=== PATIENT | male | born 1965 | race Caucasian/White ===

== ENCOUNTER 2021-03-24 17:21 | Inpatient (IN) | payer BC, SELFPAY ==
[~2021-03-24] VITALS: Ht 177.8 cm; Wt 95.3 kg
[2021-03-24 17:25] VITALS: BP 158/82
[2021-03-24] MEDS ORDERED: LORazepam 2 MG/ML VIAL ONE ×2 (17:28→17:31)
[2021-03-24] MEDS ORDERED: NALOXONE PFS 2 MG/2 ML SYR IVP ONE (17:35)
[2021-03-24] MEDS ORDERED: levETIRAcetam 1,000 MG in NACL 0.9% 100 ML IV ONE (17:35)
[2021-03-24] MEDS ORDERED: PROPOFOL 1000 MG/100 ML PREMIX 100 ML IV ONE ×2 (17:35→22:28)
[2021-03-24] MEDS ORDERED: MIDAZOLAM MDV 50 MG in NACL 0.9% 40 ML IV PRN (17:35)
--- NOTE | 2021-03-24 17:35 | NUR ---
PT BROUGHT IN BY [facility], DRAW SHEETED TO BED 3 AND PLACED ON DRAFTER (CAD) ELECTRICAL.
--- NOTE | 2021-03-24 17:35 | NUR ---
(2085) DX: ALOC SEIZURES SOFT METALS HAND ENGRAVER CALLED TO BEDSIDE GAYR VAN AND GARY SCHWARZ ATTENDING
--- NOTE | 2021-03-24 17:38 | NUR ---
PT PLACED ON VENT AC 16, VT 500, PEEP 5 AND FIO2 100%. ETT SECURED @24 TEETH/GUM. VENT ALARMS SET AND FUNCTIONING. ADEQUATE VT BEING DELIVERED. PEAK PRESSURES/RR WITHIN NORMAL RANGE. WILL CONTINUE TO MONITOR.
--- NOTE | 2021-03-24 17:39 | NUR ---
# 16 FR Mc catheter with 10 ml utilizing sterile technique. Immediate return of 40mL straw urine noted. Bedside drainage bag placed below level of bladder. Urine sample collected and sent to lab. Pt tolerated procedure well.
--- NOTE | 2021-03-24 17:40 | NUR ---
# 16 FR OG tube placed to MOUTH. Placement checked by auscultation of instilled air into stomach and aspiration of gastric contents. Tubing taped in place to prevent dislodging. Patient tolerated WELL.
--- NOTE | 2021-03-24 17:40 | NUR ---
Note sean in ED - 03/24/21 at 1958 by CAM 16 FR OG TUBE INSERTED. PLACEMENT CONFIRMED BY AUSCUTATION. RAD CONTACTED FOR PLACEMENT CONFIRMATION.
--- NOTE | 2021-03-24 17:40 | NUR ---
56 y/o M TWIN from home for ALOC and desaturation. Per EMS, patient presented with seizures, ALOC and agitation. EMS states patient desaturated down to ~50% during transport. Family states at 1647, 911 was contacted after patient was resting on a couch s/p chemotherapy when he stated that "I do not feel well." Family states patient fell down to his knees and asked for help. Family assisted patient from couch onto ground and denies LOC. Family noted patient with R sided facial drool and a bit tongue. Last seen normal: 1630. Last seizure 4 months ago (new onset). Patient presented to ER by BVM, HR 145, SpO2 95% by BVM. RT, ERMD, EMT and staff RNs at bedside. PMH: lung cancer (metastasized to brain and bones), HTN, seizures Meds: Decadron, lasix, amlodipine, Keppra
--- NOTE | 2021-03-24 17:43 | NUR ---
ENDOTRACHEAL TUBE CONFIRMATION VIA CHEST XRAY BY DR. SARAH FRANKLIN "GOOD POSITION"
--- NOTE | 2021-03-24 17:49 | NUR ---
(1730) USING A GLIDESCOPE PATIENT SUCCESSFULLY INTUBATED BY DR. SARAH YOUNG WITH AN ENDOTRACHEAL TUBE #7.5 SECURED AT 24cM TEETH/GUM LINE CONFIRMATION BY CO2 DETECTOR (YELLOW) GOOD CHEST RISE AUSCULTATION BILATERAL APEX TO MID + ABDOMINAL BY HECTOR CHEST XRAY TO FOLLOW
--- NOTE | 2021-03-24 17:50 | NUR ---
LAB AT BEDSIDE, HANDED UA AND BLOOD SAMPLE/CULTURES TO CPT KI
--- NOTE | 2021-03-24 18:00 | NUR ---
TRANSFERRED ON VENTILATOR TO RADIOLOGY FOR CT SCAN OF HEAD OXYGEN CONNECTED TO E-TANK TOLERATED PROCEDURE AND TRANSPORT WELL WITHOUT ADVERSE REACTIONS NOTED SATURATION 99%-100%
--- NOTE | 2021-03-24 18:02 | NUR ---
PATIENT TRASNPORTED VIA ZannelNEY ON EMERGENCY OPERATOR FOR CT SCANS, ACCOMPANIED BY ASHLEY-RN, MIKHAIL-RT, AND LUCÍA- STATEMENT REQUEST CLERK.
[2021-03-24 18:05] LABS: APPEARANCE,URINE CLEAR (CLEAR); BILIRUBIN,URINE NEGATIVE (NEGATIVE); BLOOD, URINE 2+ (NEGATIVE); COLOR,URINE YELLOW (YELLOW); LEUKOCYTE ESTERASE ,URINE NEGATIVE (NEGATIVE); NITRITE, URINE NEGATIVE (NEGATIVE); PH,URINE 5.5 (5.0-9.0); UGLUCOSE NEGATIVE (NEGATIVE)
[2021-03-24 18:05] LABS: BASOPHILS # (AUTO) 0.1 K/uL (0.00-0.22); BASOPHILS % (AUTO) 0.4 % (0.0-2.0); EOSINOPHILS % (AUTO) 0.2 % (0.0-4.0); HEMATOCRIT 37.3 % (36-52); HEMOGLOBIN 11.8 g/dL (12.0-18.0); LYMPHOCYTES # (AUTO) 3.8 K/uL (2.0-11.5); LYMPHOCYTES % (AUTO) 17.4 % (20.5-51.1); MEAN CORPUSCULAR HEMOGLOBIN 31 pg (27-31); MEAN CORPUSCULAR HGB CONC 32 g/dL (33-37); MEAN CORPUSCULAR VOLUME 98.3 fL (80-94); MONOCYTES # (AUTO) 0.9 K/uL (0.8-1.0); NEUTROPHILS # (AUTO) 16.9 K/uL (1.8-7.7); PLATELET COUNT (AUTO) 200 K/uL (140-450); WHITE BLOOD COUNT (AUTO) 21.7 K/uL (4.8-10.8)
[2021-03-24 18:11] LABS: COARSE GRANULAR CASTS,URINE 0-10 /LPF (None Seen); RBC,URINE 11-20 (MOD) /HPF (0-5); WBC,URINE 0-5 /HPF (0-5)
--- NOTE | 2021-03-24 18:15 | NUR ---
Brando estrada in [facility] - 03/24/21 at 2006 by CAM SEE CODE SHEET FOR DETAILS
[2021-03-24 18:16] LABS: BARBITURATE, URINE NEGATIVE ng/ml (NEG <=200); BENZODIAZEPINE, URINE NEGATIVE ng/mL (NEG <=200); CANNABINOID, URINE NEGATIVE ng/mL (NEG <=50); COCAINE, URINE NEGATIVE ng/mL (NEG <=300); OPIATE, URINE NEGATIVE ng/mL (NEG <=2000); PHENCYCLIDINE SCREEN,URINE NEGATIVE ng/mL (NEG <=25)
[2021-03-24] MEDS ORDERED: NACL 0.9% 1,000 ML IV ONE ×2 (18:25→19:40)
[2021-03-24] MEDS ORDERED: DEXAMETHASONE 10 MG/ML VIAL IVP ONE (18:25)
[2021-03-24 18:29] LABS: ACETAMINOPHEN < 0.5 ug/ml (10-30); ALBUMIN 2.2 g/dL (3.4-5.0); ANION GAP 19.8 (8-16); ASPARTATE AMINOTRANSFERASE 46 U/L (15-37); CARBON DIOXIDE 18.4 mmol/L (21-32); CHLORIDE 104 mmol/L (98-107); CREATININE 1.4 mg/dL (0.6-1.3); GFR ARICAN-AMERICAN 67 mL/min (>90); GLUCOSE 182 mg/dL (74-106); POTASSIUM 4.2 mmol/L (3.5-5.1); SALICYLATE < 2.8 mg/dL (2.8-20.0); SODIUM SERUM 138 mmol/L (136-145); THYROID STIMULATING HORMONE 10.22 uIU/mL (0.34-3.74); TOTAL BILIRUBIN 0.3 mg/dL (0.0-1.0); UREA NITROGEN, BLOOD 13 mg/dL (7-18)
--- NOTE | 2021-03-24 18:32 | NUR ---
CENTRAL SET UP AT BED SIDE ERMD NOTIFIED
--- NOTE | 2021-03-24 19:20 | NUR ---
Report and transfer of care endorsed to SANDOR Cortes.
[2021-03-24] MEDS ORDERED: VANCOMYCIN 1,000 MG in DEXTROSE 5% 250 ML IV ONE (19:30)
[2021-03-24] MEDS ORDERED: PIPERACILLIN/TAZOBACTAM 4.5 GM in DEXTROSE 5% 100 ML IV ONE (19:30)
--- NOTE | 2021-03-24 19:30 | NUR ---
VINCENT SZYMANSKI JR (SON) [phone] REQUESTED CONTACT FOR FURTHER UPDATES/ROOM PLACEMENT
--- NOTE | 2021-03-24 19:30 | NUR ---
SEE IV SPREAD SHEET FOR VS.
[2021-03-24] MEDS ORDERED: LACTULOSE 20 GM/30 ML UDC PO ONE (19:35)
[2021-03-24] MEDS ORDERED: levETIRAcetam 100 MG/ML VIAL IV ONE (19:35)
[2021-03-24] MEDS ORDERED: NALOXONE 0.4 MG/ML VIAL IVP ONE (19:40)
--- NOTE | 2021-03-24 19:45 | NUR ---
XRAY AT BEDSIDE.
[2021-03-24] MEDS ORDERED: LORazepam 2 MG/ML VIAL IVP ONE (20:00)
[2021-03-24] MEDS ORDERED: ETOMIDATE 20 MG/10 ML VIAL IVP ONE (20:00)
[2021-03-24] MEDS ORDERED: ROCURONIUM 50 MG/5 ML VIAL IV ONE (20:00)
[2021-03-24] MEDS ORDERED: LABETALOL 100 MG/20 ML VIAL IVP ONE (20:05)
[2021-03-24] MEDS ORDERED: PIPERACILLIN/TAZOBACTAM 4.5 GM VIAL IV ONE (20:09)
--- NOTE | 2021-03-24 20:15 | NUR ---
Patient appears to be resting comfortably in bed. Vital Signs within normal limits. Respirations even and unlabored.
--- NOTE | 2021-03-24 20:26 | NUR ---
PT TAKEN TO CT
--- NOTE | 2021-03-24 21:02 | NUR ---
PT BROUGHT BACK FROM CT
--- NOTE | 2021-03-24 21:11 | NUR ---
PT RECIEVED IN ED ON VENT AC/VC 500 +5 f16 100% W/ 7.5 ETT SECURED @ 24CM AND WAS TRANSPORTED TO CT AND BACK TO ED W/ NO ADVERSE EVENTS VENT IS PLUGGED INTO RED OUTLET W/ ALARMS ON AND AUDIBLE AMBU IS AT BEDSIDE WILL CONTINUE TO MONITOR
--- NOTE | 2021-03-24 21:30 | NUR ---
Patient appears to be resting comfortably in bed. Patient remains on manager cardiac cath, vital signs improving. Respirations even and unlabored. Patient FC emptied 1300ml. Patient bed is locked and in lowest postion. at bedside.
[2021-03-24] MEDS ORDERED: DOCUSATE SODIUM 100 MG GELCAP PO PRN (21:50)
[2021-03-24] MEDS ORDERED: ONDANSETRON 4 MG/2 ML VIAL IM/IVP PRN (21:50)
[2021-03-24] MEDS ORDERED: HYDROcodone/APAP 5/325 MG 1 TAB TAB PO PRN (21:50)
[2021-03-24] MEDS ORDERED: MORPHINE SULFATE 2 MG/ML SYR IVP PRN (21:50)
[2021-03-24] MEDS ORDERED: SODIUM PHOS / POTASSIUM PHOS 1 PKT PDR PO PRN (21:50)
[2021-03-24] MEDS ORDERED: POTASSIUM CHLORIDE 40 MEQ, LIDOCAINE MPF 1% 25 MG in NACL 0.9% 250 ML IV PRN (21:50)
[2021-03-24] MEDS ORDERED: MAG SULF 2000 MG/WATER PREMIX 50 ML IV PRN (21:50)
[2021-03-24 22:25] LABS: PHOSPHORUS 5.9 mg/dL (2.5-4.9)
[2021-03-24] MEDS: NACL 0.9% 1,000 ML IV SCH (22:50)
--- NOTE | 2021-03-24 23:03 | NUR ---
Patient appears to be resting comfortably in bed.Patient remains on quality assurance monitor chassis, vitals continue to imporve. See IV spread sheet for vitals. Patient remains on vent to trach, respirations even and unlabored. Patient bed is locked and in lowest positon.
[2021-03-24] MEDS ORDERED: VANCOMYCIN 1,000 MG VIAL ONE (23:26)
[2021-03-25] VITALS (22 sets, daily range): BP systolic 90–127; BP diastolic 49–76
[2021-03-25] MEDS ORDERED: PROPOFOL 1000 MG/100 ML PREMIX 100 ML IV ONE ×4 (01:08→10:32)
--- NOTE | 2021-03-25 01:13 | NUR ---
Patient appears to be resting comfortably in bed. Patient remains on residential solar consultant, Vital Signs within normal limits. Respirations even and unlabored, patient remains on mechanical ventilator. remians at bedside. Iv site in r hand remains patient. Skin is clean and dry, patient repositioned for comfort measures.
--- NOTE | 2021-03-25 02:26 | NUR ---
Patient remains on patient monitor with VSS. at bedside. Iv site in r hand remains patient. Patient repositioned for comfort measures. No BM noted, FC emptied of 500 ml or yellow urine.
--- NOTE | 2021-03-25 02:45 | NUR ---
FIO2 TITRATED TO 70% AND PT TOLERATING WELL 100% 5 MIN POST TITRATION WILL CONTINUE TO MONITOR AND TITRATE TOLERATED
--- NOTE | 2021-03-25 04:22 | NUR ---
Patient appears to be resting comfortably in bed. Patient remains on cardiac monitorand VS WNL. Respirations even and unlabored while on vent.
--- NOTE | 2021-03-25 04:33 | NUR ---
FIO2 TITRATED TO 50% AND TOLERATING WELL WILL CONTINUE TO MONITOR AND TITRATE TOLERATED
--- NOTE | 2021-03-25 05:02 | NUR ---
RT SUCTIONED AT BEDSIDE, PATIENT TOELRATED WELL. PATIENT REPOSITIONED FOR COMFORT MEASURES.
[2021-03-25] MEDS: PIPERACILLIN/TAZOBACTAM 2.25 GM in DEXTROSE 5% 50 ML IV SCH ×4 (06:00→23:23)
--- NOTE | 2021-03-25 06:10 | NUR ---
Patient will be admitted to care of . Admited to ICU. Will go to room BED 1. Belongings list completed. Report to KEN PATTEN.
[2021-03-25 06:20] LABS: HEMATOCRIT 35.2 % (36-52); HEMOGLOBIN 11.9 g/dL (12.0-18.0); MEAN CORPUSCULAR HEMOGLOBIN 32 pg (27-31); MEAN CORPUSCULAR HGB CONC 34 g/dL (33-37); MEAN CORPUSCULAR VOLUME 95.5 fL (80-94); PLATELET COUNT (AUTO) 200 K/uL (140-450); RED BLOOD CELL COUNT(AUTO) 3.69 MIL/uL (4.20-6.10); RED CELL DISTRIBUTION WIDTH 19.1 % (11.6-13.7); WHITE BLOOD COUNT (AUTO) 12.5 K/uL (4.8-10.8)
--- NOTE | 2021-03-25 06:30 | NUR ---
RECEIVED REPORT FROM ER NURSE.
--- NOTE | 2021-03-25 06:45 | NUR ---
PT TRANSFERRED TO BED 1 HE WAS RESTARTED ON PROPOFOL AT 60MCG WELL NORMAL SALINE RUNNING AT 40MLS/HR BOTH RUNNING OFF LEFT CENTRAL LINE. PT ALSO HAS BERMUDEZ CATHETER INSERTED HE IS INTUBATED AND VENT SETTINGS ORDERED VT 500 FIO2 AT 55% R 18. PT EYES CLOSED AND NOT ORIENTED TO PERSON, TIME OR PLACE. V/S FOLLOWS: T 97.7 P 79 R 16 B/P 107/67 02 99% ON ALL VENT SETTINGS. ALL ORDERED PRECAUTIONS IN PLACE.
[2021-03-25 06:52] LABS: ANION GAP 15.8 (8-16); CARBON DIOXIDE 21.5 mmol/L (21-32); CREATININE 1.4 mg/dL (0.6-1.3); POTASSIUM 4.3 mmol/L (3.5-5.1)
--- NOTE | 2021-03-25 06:53 | NUR ---
HANG NEW BAG OF PROPOFOL 1000MG VIA PERIPHERAL LINE
--- NOTE | 2021-03-25 07:15 | NUR ---
RECEIVED BEDSIDE REPORT FROM NIGHTSHIFT NURSE. PT ETT TO VENT FIO1 55%, VT 500, R 16, PEEP 5. RESPIRATIONS EVEN AND UNLABORED WITH NO SOB OR RESPIRATORY DISTRESS. SKIN WARM AND DRY TO TOUCH. ON BARE HUGGER. PT WITH BERMUDEZ DRAINING VIA GRAVITY. PT WITH OGT. PT HAS LIJ TRIPLE LUMEN CENTRAL LINE INFUSING NS AT 40 AND PROP AT 60MCG/MIN. SAFETY MEASURES IN PLACE. WILL CONTINUE TO MONITOR
--- NOTE | 2021-03-25 07:45 | NUR ---
RCV'D PATIENT INTUBATED WITH 7.5 ETT AT 24 CM AT TEETH. TUBE IS IN PLACE AND SECURED WITH ANCHOR-FAST. NO SOB OR DISTRESS NOTES. VENT CONNECTED TO RED OUTLET. ALARMS AUDIBLE. AMBU BAG AT BEDSIDE. WILL CONTINUE TO MONITOR PATIENT.
--- NOTE | 2021-03-25 08:17 | NUR ---
PATIENT HAS BEEN SCREENED AND CATEGORIZED HIGH NUTRITION RISK. PATIENT WILL BE SEEN WITHIN 1-2 DAYS OF ADMISSION. 03/25/21-03/26/21 RECEIVED FNS CONSULT FOR TUBE FEEDING QUINTEN GALINDO RD
[2021-03-25 08:27] LABS: LYMPHOCYTES % (MANUAL) 9 % (20-46); MONOCYTES % (MANUAL) 2 % (5-12)
[2021-03-25] MEDS ORDERED: levETIRAcetam 500 MG in NACL 0.9% 100 ML IV SCH (09:00)
--- NOTE | 2021-03-25 09:00 | NUR ---
AT BEDSIDE UPDATE GIVEN
[2021-03-25] MEDS: PANTOPRAZOLE 40 MG INJ VIAL IVP SCH (09:43)
--- NOTE | 2021-03-25 09:58 | NUR ---
ADMINISTERED SCHED MED PRESCRIBED PER MD ORDER. PT TOLERATED FAIRLY. SAFETY MEASURES IN PLACE. WILL CONTINUE TO MONITOR
--- NOTE | 2021-03-25 10:15 | NUR ---
DR. VANG ASESSING PATIENT AND AT BEDSIDE SPEAKING WITH PATIENTS SON VINCENT.
[2021-03-25] MEDS: PROPOFOL 1000 MG/100 ML PREMIX 100 ML IV PRN ×4 (10:45→23:28)
[2021-03-25] MEDS: NACL 0.9% 1,000 ML IV SCH ×3 (11:15→20:41)
--- NOTE | 2021-03-25 11:15 | NUR ---
DR. DUBOSE AT BEDSIDE ASSESSING PATIENT AND SPEAKING WITH
--- NOTE | 2021-03-25 11:50 | NUR ---
DECREASED FIO2 TO 30% RN NOTIFIED WILL CONTINUE TO MONITOR PATIENT.
--- NOTE | 2021-03-25 12:15 | NUR ---
AT BEDSIDE VISITING PATIENT. SAFETY MEASURES IN PLACE. WILL CONTINUE TO MONITOR
[2021-03-25] MEDS ORDERED: AMLO5TAB PO (12:17)
[2021-03-25] MEDS ORDERED: DEC4 PO (12:17)
[2021-03-25] MEDS ORDERED: FURO-572 PO (12:17)
[2021-03-25] MEDS ORDERED: LORazepam 2 MG/ML VIAL IM/IVP PRN (12:40)
[2021-03-25] MEDS: LACTULOSE 20 GM/30 ML UDC PO SCH (13:09)
--- NOTE | 2021-03-25 13:57 | NUR ---
03/25/21 RD INITIAL ASSESSMENT COMPLETED PLEASE REFER TO NUTRITION ASSESSMENT UNDER CARE ACTIVITY FOR ESTIMATED NUTRITIONAL NEEDS. 1. CONTINUE JEVITY 1.2 @ 55 ML/HR -THIS WILL PROVIDE 1584 KCAL/DAY AND 73 GM OF PROTEIN/DAY 2. CONTINUE FREE WATER FLUSH OF 150 ML Q6H 3. IF/WHEN PT IS EXTUBATED, CONSIDER ORDERING A SWALLOW EVALUATION TO ADVANCE TO PO INTAKE 4. RD TO FOLLOW-UP 2-3 DAYS, HIGH RISK QUINTEN GALINDO, RD
--- NOTE | 2021-03-25 14:05 | NUR ---
PROVIDED ORAL CARE TO PATIENT. SAFETY MEASURES IN PLACE. WILL CONTINUE TO MONITOR
--- NOTE | 2021-03-25 14:06 | NUR ---
PROVIDED ORAL CARE TO PATIENT. PT TOLERATED WELL. SAFETY MEASURES IN PLACE. WILL CONTINUE TO MONITOR
--- NOTE | 2021-03-25 15:04 | NUR ---
DR. BARRIGA ASSESSING PATIENT
--- NOTE | 2021-03-25 15:07 | NUR ---
DC PLANNIN YRS OLD MALE PATIENT WAS ADMITTED FROM HOME WITH A DX OF LUNG CA, RESP FAILURE AND SEIZURE. PATIENT HAS A HX OF HTN, SEIZURE AND LUNG CA METS TO THE BRAIN. PT RECEIVED CHEMOTHERAPY 03/24/21 . CXR SHOWED HAZY BILATERAL PULMONARY INFILTRATE. RAPID COVID TEST NEGATIVE. INTUBATED SEDATED FIO2 40% ADMINISTERED IVF, IV ABX ZOSYN AND KEPPRA IV. CONSULTED WITH PULMO LOPEZO, AND NEUROLOGIST. DC PLAN PER PATIENT RESPONSE TO THE TREATMENT. Addendum: 03/26/21 at 1150 by Falguni Yusuf RN DC PLANNING: RECEIVED A CALL FROM BS/BREANNA MCKEE NAME TERRANCE [phone] STATED SHE RECEIVED A CALL FROM PT'S NAME SIVA WHO CONCERNED ABOUT HOSPITAL THAT IS NOT CONTRACTED AND WORRIED ABOUT THE BILL. CALLED TERRANCE RYLEE DISCUSSED THE ISSUES AND CONCERN PER TERRANCE SINCE THIS IS EMERGENCY CASE SHE SHOULDN'T BE WORRIED BUT IF PATIENT IS STABLE TO TRANSFER [facility] IS CONTRACTED. I MET SIVA AT THE BED SIDE DISCUSSED THE CONCERN AND ISSUES ANSWERED ALL QUESTION AND SHE MENTIONED THAT DR ZAMARRIPA IS THE ONCOLOGIST AND TO CONSULT HIM. WILL NOTIFY ATTENDING. I EXPLAINED THE PROTOCOL AND ONCE PT IS STABLE FOR TRANSFER WILL FAX IT TO [facility] RYLEE TO FOLLOW Addendum: 03/30/21 at 1220 by Falguni Yusuf RN DC PLANNING: PATIENT IS SATING 98% ON ROOM AIR , NOT QUALIFIED FOR HOME O2. PRIMARY WILL MONITOR WITH ROOM AIR. CM TO FOLLOW
--- NOTE | 2021-03-25 15:15 | NUR ---
PT DAUGHTER AT BEDSIDE. WANTED UPDATE. UPDATE GIVEN. SAFETY MEASURES IN PLACE. WILL CONTINUE TO MONITOR
--- NOTE | 2021-03-25 16:10 | NUR ---
REPOSITIONED PT COMFORTABLY. PT TOLERATED WELL. SAFETY MEASURES IN PLACE. WILL CONTINUE TO MONITOR
--- NOTE | 2021-03-25 18:50 | NUR ---
USED PHONE DIRECTORY TO PAGE DR. AUGUSTIN AT [phone] BUT NUMBER IS NO LONGER WORKING, CONNECTED TO [employer] AND GRAPHIC TECHNICIAN IS UNAWARE OF DR BY THAT NAME. USED OTHER PHONE NUMBER FOR [employer] AT [phone] AND PHONE NUMBER IS NO LONGER IN SERVICE. FOUND NUMBER [phone] AND WAS ABLE TO PAGE DR. AUGUSTIN. DR. AUGUSTIN CALLED BACK AND IS AWARE OF PATIENT AND STATUS. VERBALIZED UNDERSTANDING THAT HE WILL SEE PATIENT. SAFETY MEASURES IN PLACE. WILL CONTINUE TO MONITOR
--- NOTE | 2021-03-25 19:15 | NUR ---
RECEIVED PATIENT FROM AM SHIFT NURSE FOR CONTINUITY OF CARE. RASS -3. ETT TO VENT. RESPIRATIONS EVEN, UNLABORED. NO S/S RESPIRATORY DISTRESS. S1/S2 AUSCULTATED. FLACC 0. SKIN WARM, DRY. LEFT IJ PATENT/INTACT, INFUSING PROPOFOL AND IV FLUIDS WELL. ABDOMEN SOFT, NONTENDER, NONDISTENDED. BOWEL SOUNDS ACTIVE x4 QUADRANTS. OGT NOTED, CONTINUES ON ENTERAL FEEDING. HOB UP 30 DEGREES. BERMUDEZ CATHETER PATENT WITH PINK URINE DRAINING TO GRAVITY. PATIENT IS CLEAN/DRY. PLAN OF CARE DISCUSSED. SAFETY PRECAUTIONS IN PLACE.
--- NOTE | 2021-03-25 19:15 | NUR ---
ENDORSED TO NIGHTSHIFT NURSE FOR CONTINUITY OF CARE
[2021-03-25] MEDS: levETIRAcetam 1,000 MG in NACL 0.9% 100 ML IV SCH (20:15)
[2021-03-25] MEDS: DOCUSATE 100 MG/10 ML UDC PO SCH (20:26)
--- NOTE | 2021-03-25 21:30 | NUR ---
DUE MEDS GIVEN. NO S/S RESPIRATORY DISTRESS. FLACC 0. PATIENT IS CLEAN/DRY. PROVIDED EDUCATION TO DAUGHTER AT BEDSIDE REGARDING MEDICATION.
--- NOTE | 2021-03-25 23:01 | NUR ---
NO S/S RESPIRATORY DISTRESS. FLACC 0. PATIENT IS CLEAN/DRY.
[2021-03-26] VITALS (28 sets, daily range): BP systolic 94–150; BP diastolic 60–86
--- NOTE | 2021-03-26 01:00 | NUR ---
VAP ORAL CARE RENDERED
--- NOTE | 2021-03-26 03:30 | NUR ---
PATIENT TURNED AND REPOSITIONED. NO S/S RESPIRATORY DISTRESS. FLACC 0. PATIENT IS CLEAN/DRY.
--- NOTE | 2021-03-26 05:30 | NUR ---
INCONTINENT CARE RENDERED.
[2021-03-26 05:47] LABS: HEMOGLOBIN 11.4 g/dL (12.0-18.0); LYMPHOCYTES # (AUTO) 0.6 K/uL (2.0-11.5); LYMPHOCYTES % (AUTO) 4.2 % (20.5-51.1); MEAN CORPUSCULAR HEMOGLOBIN 31 pg (27-31); MEAN CORPUSCULAR HGB CONC 33 g/dL (33-37); MEAN CORPUSCULAR VOLUME 96.2 fL (80-94); MONOCYTES # (AUTO) 0.5 K/uL (0.8-1.0); MONOCYTES % (AUTO) 3.4 % (1.7-9.3); NEUTROPHILS % (AUTO) 92.4 % (42.2-75.2); PLATELET COUNT (AUTO) 183 K/uL (140-450); RED BLOOD CELL COUNT(AUTO) 3.64 MIL/uL (4.20-6.10); RED CELL DISTRIBUTION WIDTH 18.9 % (11.6-13.7); WHITE BLOOD COUNT (AUTO) 15.2 K/uL (4.8-10.8)
[2021-03-26 05:57] LABS: ANION GAP 15.2 (8-16); CARBON DIOXIDE 21.4 mmol/L (21-32); CREATININE 1.9 mg/dL (0.6-1.3); POTASSIUM 3.6 mmol/L (3.5-5.1)
[2021-03-26] MEDS: PIPERACILLIN/TAZOBACTAM 2.25 GM in DEXTROSE 5% 50 ML IV SCH ×3 (06:08→18:00)
[2021-03-26] MEDS: NACL 0.9% 1,000 ML IV SCH ×3 (06:44→21:50)
--- NOTE | 2021-03-26 07:20 | NUR ---
ENDORSED PATIENT TO AM SHIFT NURSE FOR CONTINUITY OF CARE.
--- NOTE | 2021-03-26 07:20 | NUR ---
RECEIVED BEDSIDE REPORT FROM WAREHOUSE PACKER NURSE. PATIENT SUPINE IN BED, HOB 30 DEGREES, SEDATED TO RASS -3. CHEST RISE AND FALL EQUAL BILATERALLY, ETT TO VENT: ACVC 24% FIO2, VT 500, RR 16, P5, SPO2 96%. NO SIGNS OF ACUTE DISTRESS NOTED. OGT INFUSING JEVITY @ 55 ML/HR. BERMUDEZ CATHETER IN PLACE, DRAINING TO GRAVITY. LIJ IN PLACE INFUSING NS @ 40ML/HR, PROPOFOL @ 40 MCG/KG/MIN, RH 18G SL. BEAM WARPER IN PLACE. SAFETY MEASURES IN PLACE.
[2021-03-26] MEDS: PANTOPRAZOLE 40 MG INJ VIAL IVP SCH (08:24)
[2021-03-26] MEDS: LACTULOSE 20 GM/30 ML UDC PO SCH (08:24)
[2021-03-26] MEDS: DOCUSATE 100 MG/10 ML UDC PO SCH ×2 (08:24→20:31)
[2021-03-26] MEDS: levETIRAcetam 1,000 MG in NACL 0.9% 100 ML IV SCH ×2 (09:00→20:30)
[2021-03-26] MEDS: PROPOFOL 1000 MG/100 ML PREMIX 100 ML IV PRN ×2 (09:30→19:30)
--- NOTE | 2021-03-26 10:50 | NUR ---
PATIENTS AT BEDSIDE WITH PATIENT AT THIS TIME. UPDATED ON PATIENT STATUS ALL QUESTIONS ANSWERED. CASE MANAGEMENT CALLED PER PATIENT AT THIS TIME, NO ANSWER, WILL TRY AGAIN.
--- NOTE | 2021-03-26 11:05 | NUR ---
AUTO FLEET MAINTENANCE MANAGER CALLED AGAIN PER PT REQUEST, AUTO FLEET MAINTENANCE MANAGER ON THIER WAY TO BEDSIDE TO SPEAK WITH PATIENT .
--- NOTE | 2021-03-26 12:20 | NUR ---
PATIENT CALM, WITH SON AT BEDSIDE. CHEST RISE AND FALL EQUAL BILATERALLY. NO SIGNS OF ACUTE DISTRESS NOTED. WILL CONTINUE TO MONITOR.
--- NOTE | 2021-03-26 13:35 | NUR ---
Covering for primary RN. Family at bedside. Patient sedated. Pt appears comfortable.
--- NOTE | 2021-03-26 13:45 | NUR ---
Urine emptied from F/C per family request. 900 ml dark, daniel color urine emptied. Blood clots noted in urine bag. Documented in I&O spreadsheet.
--- NOTE | 2021-03-26 14:19 | NUR ---
DR DUBOSE ROUNDING ON PATIENT AT BEDSIDE, PER DR DUBOSE, WEAN OFF PROPOFOL TO BEGIN CPAP TRIAL. RT AWARE.
--- NOTE | 2021-03-26 15:15 | NUR ---
CPAP TRIAL ATTEMPTED WITH RT AT BEDSIDE. PATIENT BECOMES TOO AGITATED, RR IN THE 30S. UNABLE TO RELAX. CPAP TRIAL ENDED, WILL ATTEMPT AT A LATER TIME.
--- NOTE | 2021-03-26 15:16 | NUR ---
STARTED PT ON CPAP TRIAL BUT PATIENT IS VERY ANXIOUS RR MID 30s. CPAP TRIAL ENDED. RN AWARE. PT BACK ON PREVIOUS SETTINGS CHARTED. WILL CONTINUE TO MONITOR.
--- NOTE | 2021-03-26 16:28 | NUR ---
PATIENT DAUGHTER AT BEDSIDE WITH PATIENT. PATIENT STABLE, BREATHING EVEN AND UNLABORED, NO SIGNS OF ACUTE DISTRESS NOTED. ALL VITALS STABLE.
--- NOTE | 2021-03-26 18:51 | NUR ---
DIET OFFICE CALLED IN REGARDS TO SUPPLYING MORE TUBE FEEDING DIET FOR PATIENT. NO MORE TUBE FEEDING AVAILABLE IN ICU FOR THIS PATIENT. WILL FOLLOW UP.
--- NOTE | 2021-03-26 19:33 | NUR ---
RECEIVED REPORT FROM DAY SHIFT RN, ON PROPOFOL DRIP @ 35 MCG/KG/MIN @ 92 KG. PT FOLLOWING SIMPLECOMMANDS MOVING ALL EXTREMITIES. ETTTO VENT ON 24% FIO2 5T00 165 Addendum: 03/26/21 at 1941 by Oswaldo Bennett RN ETT TO VENT ON 24% FIO2 TV 500 R 16 PEEP 5. MINIMAL SUCTION THIN CLEAR SECRETIONS NOTED. OGT IN PLACE. BERMUDEZ CATH IN PLACE JALEESA URINE DRAINING. L IJ WITH NS RUNNING @ 40 ML/HR. SKIN INTACT. BED LOCKED IN LOWEST POSITION. DENIES PAIN. CALL LIGHT WITHIN REACH.
--- NOTE | 2021-03-26 22:45 | NUR ---
BATH GIVEN. LINEN CHANGED. PT TURNED AND REPOSITIONED. VSS.
[2021-03-27] VITALS (24 sets, daily range): BP systolic 100–157; BP diastolic 58–92
[2021-03-27] MEDS: PROPOFOL 1000 MG/100 ML PREMIX 100 ML IV PRN ×2 (00:35→07:41)
--- NOTE | 2021-03-27 00:35 | NUR ---
PT SEDATED RASS-3 VSS. NO S/S OF DISTRESS NOTED.
[2021-03-27] MEDS: PIPERACILLIN/TAZOBACTAM 2.25 GM in DEXTROSE 5% 50 ML IV SCH ×3 (00:38→12:34)
[2021-03-27] MEDS: NACL 0.9% 1,000 ML IV SCH ×2 (03:15→21:50)
--- NOTE | 2021-03-27 03:35 | NUR ---
VAP ORAL CARE DONE; PT TURNED AND REPOSITIONED. VSS
[2021-03-27 06:01] LABS: BASOPHILS % (AUTO) 0.1 % (0.0-2.0); EOSINOPHILS % (AUTO) 0.1 % (0.0-4.0); HEMATOCRIT 32.7 % (36-52); HEMOGLOBIN 10.9 g/dL (12.0-18.0); LYMPHOCYTES # (AUTO) 0.3 K/uL (2.0-11.5); LYMPHOCYTES % (AUTO) 3.2 % (20.5-51.1); MEAN CORPUSCULAR HEMOGLOBIN 32 pg (27-31); MEAN CORPUSCULAR HGB CONC 33 g/dL (33-37); MEAN CORPUSCULAR VOLUME 95.7 fL (80-94); MONOCYTES % (AUTO) 0.3 % (1.7-9.3); NEUTROPHILS # (AUTO) 10.3 K/uL (1.8-7.7); NEUTROPHILS % (AUTO) 96.3 % (42.2-75.2); PLATELET COUNT (AUTO) 149 K/uL (140-450); RED BLOOD CELL COUNT(AUTO) 3.41 MIL/uL (4.20-6.10); RED CELL DISTRIBUTION WIDTH 19.1 % (11.6-13.7); WHITE BLOOD COUNT (AUTO) 10.7 K/uL (4.8-10.8)
[2021-03-27 06:23] LABS: ANION GAP 13.9 (8-16); CARBON DIOXIDE 23.5 mmol/L (21-32); CREATININE 1.2 mg/dL (0.6-1.3); POTASSIUM 3.4 mmol/L (3.5-5.1)
--- NOTE | 2021-03-27 06:34 | NUR ---
VSS. VAP ORAL CARE DONE. NO S/S OF DISTRESS NOTED. WILL CONTINUE TO OBSERVE.
--- NOTE | 2021-03-27 07:20 | NUR ---
Assumed pt care change of shift report received from Oswaldo PATTEN. Met pt awake because Propofol was on hold still on ventilator via ETT, vent settings a/c v/c fio2 24 tv 500 rate 16 O2 sat 95% no signof respiratory distress, vital signs stable afebrile denies pain follows command moves all extremities. cadet to gravity pinkish, no tube feeding generalized edema, iv site left IJ dry intact no skin breakdown noted
--- NOTE | 2021-03-27 08:05 | NUR ---
RCV'D PATIENT INTUBATED WITH 7.5 ETT AT 24 CM AT TEETH. TUBE IS IN PLACE AND SECURED WITH ANCHOR-FAST. NO SOB OR DISTRESS NOTES. VENT CONNECTED TO RED OUTLET. ALARMS AUDIBLE. AMBU BAG AT BEDSIDE. PROPOFOL IS OFF PER RN. STARTING WEANING TRIALS. WILL CONTINUE TO MONITOR PATIENT.
--- NOTE | 2021-03-27 08:10 | NUR ---
pt now on CPAP occasional anxiety that makes him not tolerating the vent ongoing support and education on care plan.
--- NOTE | 2021-03-27 08:10 | NUR ---
STARTED PT ON WEANING TRIAL CPAP PS 10. PT IS CALM AND TOLERATING WELL OF NOW. RN AWARE . WILL CONTINUE TO MONITOR PATIENT.
[2021-03-27] MEDS: levETIRAcetam 1,000 MG in NACL 0.9% 100 ML IV SCH ×2 (09:00→20:44)
[2021-03-27] MEDS: PANTOPRAZOLE 40 MG INJ VIAL IVP SCH (09:00)
--- NOTE | 2021-03-27 09:10 | NUR ---
MD DUBOSE AT BEDSIDE. ORDER TO EXTUBATE PATIENT. WILL FOLLOW.
--- NOTE | 2021-03-27 09:20 | NUR ---
PT EXTUBATED. RN AT BEDSIDE. NO SOB OR DISTRESS NOTED. PT AWAKE AND ALERT. NO STRIDOR. PLACED PATIENT ON 3 L NC. SPO2 96%. WILL CONTINUE TO MONITOR PATIENT.
--- NOTE | 2021-03-27 09:27 | NUR ---
Dr Graham rounds updates on pt's condition no new order received.
--- NOTE | 2021-03-27 09:30 | NUR ---
@4040 Dr Kramer at the bedside assessed pt at the bedside vent settings and tolerance on CPAP. gave order to extubates pt. @9358 Pt extubated by RT successfully no problem encountered and no coplain from pt now on 3lnc tolerating well
--- NOTE | 2021-03-27 10:00 | NUR ---
pt's potassium was 3.4 there is a standing order ongoing now,ongoing pt's and family support.oral,cadet care done and pt assisted with repositioning for comfort.
--- NOTE | 2021-03-27 10:30 | NUR ---
@1011 Dr Prabhu Mcelroy visit at the bedside order received for nursing swallow eval. Done by this RN while MD watching, patient passed thin water and with Jello. Pt swallowed well no problem and order received for cardiac diet from MD. Pt.s also present as at this time updates by this RN and MD also discussed care plan.
[2021-03-27] MEDS: DOCUSATE 100 MG/10 ML UDC PO SCH ×2 (10:31→20:43)
[2021-03-27] MEDS: LACTULOSE 20 GM/30 ML UDC PO SCH (10:31)
--- NOTE | 2021-03-27 11:45 | NUR ---
pt's son at the bedside updates on pt's but Dr Mcelroy discussed with pt's . Dr Estrella oncologist rounds also mentioned to MD that pt's wanted to talk him.
--- NOTE | 2021-03-27 12:25 | NUR ---
Lunch served but pt could not eat well drank all the fluids assisted by the son at bedside. Denis cook supervisor notified plan tohave proper swallow evaluation by speech therapist meanwhile continue on full liquid diet with supplement.
--- NOTE | 2021-03-27 13:33 | NUR ---
Notified Dr Mcelroy about pt's urine ouput pink tinged almost bloody with some clots but draining adequate urine output pt denies discomfort at the site also offered and if he wants the cadet removed order received to d/c Lovenox and irrigate cadet PRN.
--- NOTE | 2021-03-27 13:38 | NUR ---
03/27/21 RD FOLLOW UP COMPLETED PLEASE REFER TO NUTRITION ASSESSMENT UNDER CARE ACTIVITY FOR ESTIMATED NUTRITIONAL NEEDS. 1. PENDING FOR ST SWALLOW EVAL FOR DIET ADVANCING 2. RECOMMEND ENSURE BID FOR ADDITIONAL KCAL AND PROTEIN 3. RD TO FOLLOW-UP 2-3 DAYS, HIGH RISK QUINTEN GALINDO, RD
--- NOTE | 2021-03-27 14:08 | NUR ---
pt complained that the cadet is leaking and uncomfortable requested to be taken off.Cadet d/c and Dr Mcelroy notified total output was 450.
--- NOTE | 2021-03-27 16:59 | NUR ---
Assisted to bedside commode weak gait voided and bowel movement. CHG bath complete bed linen changed and back to bed no problem encountered
--- NOTE | 2021-03-27 17:02 | NUR ---
PT STILL DOING GOOD. SON AT BEDSIDE. NO SOB OR DISTRESS NOTED. SPO2 97%. WILL CONTINUE TO MONITOR.
--- NOTE | 2021-03-27 17:39 | NUR ---
PT WAS SEEN FOR DYSPHAGIA. PT WAS ABLE TO SAFELY SWALLOW PUREE DIET WITH THINN LIQUID. PT HAD DIFFICULTY WITH MASTICATION SKILLS. RECOMMENDATION PUREE DIET WITH THIN LIQUID
--- NOTE | 2021-03-27 19:08 | NUR ---
Change of shift report at the bedside updates on pt's condition as at this time pt awake alert oriented x 4 no changes in care plan
--- NOTE | 2021-03-27 19:19 | NUR ---
RECEIVED REPORT FROM DAY SHIFT RN PT AWAKE SITTING UP IN BED, S/P EXTUBATION. ON 6L OXIMIZER, DENIES CP/SOB. SR ON MONITOR, TRACE EDEMA NOTED. LUNGS CLEAR DIMINISHED, WITH PRODUCTIVE COUGH, + THIN WHITE SPUTUM NOTED. ABD SOFT NON DISTENDED, TOLERATING PO INTAKE. PT VOIDING IN URINAL. SKIN INTACT. L IJ IN PLACE PATENT INTACT. BED LOCKED IN LOWEST POSITION. CALL LIGHT WITHIN REACH. FAMILY @ BEDSIDE.
--- NOTE | 2021-03-27 22:15 | NUR ---
PT TURNED AND REPOSITIONED. VSS.
[2021-03-28] VITALS (20 sets, daily range): BP systolic 99–175; BP diastolic 35–102
--- NOTE | 2021-03-28 00:05 | NUR ---
SUCTION GIVEN TO PT; THIN WHITE SPUTUM + COUGH
--- NOTE | 2021-03-28 00:39 | NUR ---
PT HAS EYES CLOSED; NO DISTRESS NOTED. VSSS
--- NOTE | 2021-03-28 03:38 | NUR ---
PT TURNED AND REPOSITIONED. DENIES PAIN. VSS.
[2021-03-28] MEDS: PIPERACILLIN/TAZOBACTAM 2.25 GM in DEXTROSE 5% 50 ML IV SCH ×6 (05:38→23:47)
[2021-03-28 06:06] LABS: BASOPHILS % (AUTO) 0.1 % (0.0-2.0); EOSINOPHILS % (AUTO) 0.3 % (0.0-4.0); HEMATOCRIT 33.3 % (36-52); LYMPHOCYTES # (AUTO) 0.4 K/uL (2.0-11.5); LYMPHOCYTES % (AUTO) 2.4 % (20.5-51.1); MEAN CORPUSCULAR HEMOGLOBIN 31 pg (27-31); MEAN CORPUSCULAR HGB CONC 33 g/dL (33-37); MONOCYTES # (AUTO) 0.1 K/uL (0.8-1.0); MONOCYTES % (AUTO) 0.6 % (1.7-9.3); NEUTROPHILS # (AUTO) 16.4 K/uL (1.8-7.7); NEUTROPHILS % (AUTO) 96.6 % (42.2-75.2); PLATELET COUNT (AUTO) 176 K/uL (140-450); RED BLOOD CELL COUNT(AUTO) 3.51 MIL/uL (4.20-6.10); RED CELL DISTRIBUTION WIDTH 18.6 % (11.6-13.7)
--- NOTE | 2021-03-28 06:11 | NUR ---
AM CARE DONE; LINEN CHANGED. VSS.
--- NOTE | 2021-03-28 07:15 | NUR ---
Bedside report received from Oswaldo RN met pt awake alert oriented x3 denies pain vitals signs stable, moves all extremities, education on care plan, safety on fall risk, bed in ow position, call light at reach encouraged to call for help, bed alarm activated,all needs closer to pt , oxygenation via oxymizer tolerating well n sign of shortness of breadth RR 28 O2 98%. Will continue to monitor and treat as per care plan .
[2021-03-28 07:20] LABS: ANION GAP 13.7 (8-16); CARBON DIOXIDE 23.2 mmol/L (21-32); POTASSIUM 3.9 mmol/L (3.5-5.1)
[2021-03-28] MEDS: PANTOPRAZOLE 40 MG INJ VIAL IVP SCH (08:18)
[2021-03-28] MEDS: DOCUSATE 100 MG/10 ML UDC PO SCH ×3 (08:18→21:00)
[2021-03-28] MEDS: LACTULOSE 20 GM/30 ML UDC PO SCH ×2 (08:18→08:58)
[2021-03-28] MEDS: levETIRAcetam 1,000 MG in NACL 0.9% 100 ML IV SCH ×2 (08:24→21:00)
[2021-03-28] MEDS: LEVOFLOXACIN 500 MG/D5W PREMIX 100 ML IV SCH (09:01)
--- NOTE | 2021-03-28 09:18 | NUR ---
All scheduled AM meds no adverse reaction to meds noted, given pt refused Colace and Lactulose due to frequent diarrhea. First dose of levaquin infusing pt education on meds given prior to administration ongoing monitoring for any side effects. @0918 Dr KAUR rounds at the bedside updates on pt's conditon and ongoing treatments. spoke to pt and son about the care plan order received for blood, sputum, urine culture with new abx Levaquin expatiates on needs.
--- NOTE | 2021-03-28 10:45 | NUR ---
Ate 50% of his breakfast with moderate assistance. Uirne and sputum culture sent to lab Assisted to bedside commode voided 375 no BM as anticipated, very weak gate activity intolerance noted with shortness of breadth on exertion
--- NOTE | 2021-03-28 12:10 | NUR ---
Family at the bedside ongoing education on care plan support to alleviates anxiety.
--- NOTE | 2021-03-28 13:30 | NUR ---
Dr Estrella's oncologist visit saw pt at the bedside no new order received as at this time .
--- NOTE | 2021-03-28 14:32 | NUR ---
Dr Meier rounds at the bedside updates on pt's condition on admission and presently. Pt asked if he can be discharged home but said in couple of days.
--- NOTE | 2021-03-28 16:40 | NUR ---
Assisted to bedside commode weak gate , pt is fall risk tolerated poorly shortness of breadth on exertion. Back to bed no complain vitals signs stable
[2021-03-28] MEDS: hydrALAZINE 20 MG/ML VIAL IVP PRN (18:11)
--- NOTE | 2021-03-28 19:45 | NUR ---
Change of shft report to Mell RN as at this time pt in no distress pt's at the bedside for support. vitals signs stable denies pain.
[2021-03-29] VITALS (7 sets, daily range): BP systolic 138–152; BP diastolic 75–89
--- NOTE | 2021-03-29 05:00 | NUR ---
Pt. A, Ox3, forgetful @ times but denies pain. On O2 2lpm via Oximizer w/ [id number]% Sat. ST on the scope. IVF infusing well via lt. IJ TLC. NAD. Transferred to telemetry Rm. 120A in stable condition. Care endorsed.
--- NOTE | 2021-03-29 05:27 | NUR ---
Received pt by bed from ICU. Report given by Oswaldo. A/O x 4. In no acute distress respiratory or otherwise. Denies pain. Skin is intact save right hand is weeping. He is hold a small disposable pad in that hand. Will do his vital signs. Settle him in. He is already on a heart monitor. Will continue to monitor.
[2021-03-29 05:33] LABS: BASOPHILS % (AUTO) 0.1 % (0.0-2.0); EOSINOPHILS % (AUTO) 0.2 % (0.0-4.0); HEMATOCRIT 31.6 % (36-52); HEMOGLOBIN 10.4 g/dL (12.0-18.0); LYMPHOCYTES # (AUTO) 0.3 K/uL (2.0-11.5); MEAN CORPUSCULAR HEMOGLOBIN 32 pg (27-31); MEAN CORPUSCULAR HGB CONC 33 g/dL (33-37); MEAN CORPUSCULAR VOLUME 96.1 fL (80-94); MONOCYTES # (AUTO) 0.3 K/uL (0.8-1.0); MONOCYTES % (AUTO) 1.9 % (1.7-9.3); NEUTROPHILS # (AUTO) 14.1 K/uL (1.8-7.7); PLATELET COUNT (AUTO) 189 K/uL (140-450); RED BLOOD CELL COUNT(AUTO) 3.29 MIL/uL (4.20-6.10); RED CELL DISTRIBUTION WIDTH 17.8 % (11.6-13.7); WHITE BLOOD COUNT (AUTO) 14.7 K/uL (4.8-10.8)
[2021-03-29] MEDS: PIPERACILLIN/TAZOBACTAM 2.25 GM in DEXTROSE 5% 50 ML IV SCH ×3 (05:44→17:36)
[2021-03-29] MEDS: NACL 0.9% 1,000 ML IV SCH ×2 (05:45→21:50)
[2021-03-29 06:45] LABS: ANION GAP 12.8 (8-16); CARBON DIOXIDE 23.9 mmol/L (21-32); CREATININE 0.9 mg/dL (0.6-1.3); POTASSIUM 3.7 mmol/L (3.5-5.1)
[2021-03-29 06:51] LABS: LYMPHOCYTES % (AUTO) 2.1 % (20.5-51.1); NEUTROPHILS % (AUTO) 95.7 % (42.2-75.2)
--- NOTE | 2021-03-29 07:30 | NUR ---
RECEIVED REPORT FROM INSULATION SUPERVISOR RN PT AWAKE SITTING UP IN BED, S/P EXTUBATION. ON 5L OXIMIZER. RESPIRATIONS EVEN AND UNLABORED NO DISTRESS NOTED. SKIN IS WARM, DRY, AND INTACT. L IJ IN PLACE PATENT INTACT. INFUSING FLUIDS WELL. PLAN OF CARE DISCUSSED. SAFETY PRECAUTIONS IN PLACE. BED LOCKED IN LOWEST POSITION. CALL LIGHT WITHIN REACH. FAMILY @ BEDSIDE.
[2021-03-29] MEDS: ACETAMINOPHEN 325 MG TAB PO PRN (07:53)
[2021-03-29] MEDS: PANTOPRAZOLE 40 MG INJ VIAL IVP SCH (08:54)
[2021-03-29] MEDS: LEVOFLOXACIN 500 MG/D5W PREMIX 100 ML IV SCH (08:54)
[2021-03-29] MEDS: LACTULOSE 20 GM/30 ML UDC PO SCH (08:54)
[2021-03-29] MEDS: DOCUSATE 100 MG/10 ML UDC PO SCH ×2 (08:55→21:30)
--- NOTE | 2021-03-29 09:56 | NUR ---
TITRATED TO 2 L OXIMIZER. O2 SATURATION AT 96%. NO DISTRESS NOTED. WILL CONTINUE TO MONITOR.
[2021-03-29] MEDS: levETIRAcetam 1,000 MG in NACL 0.9% 100 ML IV SCH ×2 (10:00→21:31)
--- NOTE | 2021-03-29 11:45 | NUR ---
CHECKED ON PATIENT. PT IS STABLE. NO DISTRESS NOTED. WILL CONTINUE TO MONITOR.
--- NOTE | 2021-03-29 14:00 | NUR ---
ALL SCHEDULED MEDICATIONS GIVEN. PT IS STABLE. NO DISTRESS NOTED. WILL CONTINEU TO MONITOR
--- NOTE | 2021-03-29 14:30 | NUR ---
WOUND DRESSING CHANGED AND REPLACED WITH NEW DRESSING. C.D.I NO DRAINAGE NOTE. Addendum: 03/29/21 at 1648 by Mack Madsen RN RN WRONG INTERVENTION
--- NOTE | 2021-03-29 17:40 | NUR ---
CHECKED ON PATIENT. PT IS STABLE. NO DISTRESS NOTED. WILL CONTINUE TO MONITOR.
--- NOTE | 2021-03-29 19:30 | NUR ---
ENDORSED TO HIDE CURER NURSE FOR CONTINUITY OF CARE. PT IS STABLE.
[2021-03-30] MEDS: PIPERACILLIN/TAZOBACTAM 2.25 GM in DEXTROSE 5% 50 ML IV SCH ×3 (00:44→11:56)
[2021-03-30] MEDS: hydrALAZINE 20 MG/ML VIAL IVP PRN (00:58)
[2021-03-30 00:59] VITALS: BP 163/91
[2021-03-30] MEDS: ACETAMINOPHEN 325 MG TAB PO PRN (00:59)
[2021-03-30 02:00] VITALS: BP 149/85
[2021-03-30 02:08] VITALS: BP 149/85
[2021-03-30 04:00] VITALS: BP 144/72
--- NOTE | 2021-03-30 06:59 | NUR ---
Assumed care last night. A/O x 4. In no acute distress respiratory of otherwise. O2 is on 2 liters via Oxymizer. Tolerating well. Uses urinal or bedside commode. Has a Yankauer to suction self. I am told we still have to collect a sputum culture. This specimen has been collected, and delivered to the lab. At around midnight pt. was put on room air and he did sat 95%. At around 0208 he was sating 93%. For lack of knowing what the trend would be without O2. We put him back on O2 2 liters via Oxymizer. He is a good candidate for room air. Will endorse care to AM RN.
--- NOTE | 2021-03-30 07:20 | NUR ---
RECEIVE REPORT FROM HOT DIP GALVANIZER NURSE FOR CONTINUITY OF CARE. PATIENT SLEEPING. NO ACUTE DISTRESS NOTED. PATIENT ON 2 L VIA OXYMIZER. ALL SAFETY MEASURES IN PLACE. CALL LIGHT WITHIN REACH. WILL CONTINUE TO MONITOR.
[2021-03-30 08:00] VITALS: BP 137/74
[2021-03-30] MEDS: DOCUSATE 100 MG/10 ML UDC PO SCH (08:41)
[2021-03-30] MEDS: LEVOFLOXACIN 500 MG/D5W PREMIX 100 ML IV SCH (08:42)
[2021-03-30] MEDS: LACTULOSE 20 GM/30 ML UDC PO SCH (08:42)
[2021-03-30] MEDS: PANTOPRAZOLE 40 MG INJ VIAL IVP SCH (08:42)
--- NOTE | 2021-03-30 08:58 | NUR ---
PATIENT AWAKE AND ALERT. NO ACUTE DISTRESS NOTED. PATIENT ON 2L VIA OXIMIZER. 98% O2. SCHEDULE MEDICATION GIVEN. AT BEDSIDE. ALL SAFETY MEASURE IN PLACE. CALL LIGHT WITHIN REACH. WILL CONTINUE TO MONITOR.
--- NOTE | 2021-03-30 09:35 | NUR ---
PER DOCTOR'S CHANGE PATIENT TO NASAL CANNULA.
[2021-03-30] MEDS: levETIRAcetam 1,000 MG in NACL 0.9% 100 ML IV SCH (09:42)
--- NOTE | 2021-03-30 10:05 | NUR ---
PATIENT AWAKE AND ALERT. NO ACUTE DISTRESS NOTED. PATIENT ON 2L VIA NC. 98% O2. AT BEDSIDE. ALL SAFETY MEASURE IN PLACE. CALL LIGHT WITHIN REACH. WILL CONTINUE TO MONITOR.
[2021-03-30] MEDS ORDERED: LEVO500T98 PO (11:14)
[2021-03-30 12:00] VITALS: BP 142/82
--- NOTE | 2021-03-30 12:06 | NUR ---
PATIENT AWAKE AND ALERT. NO ACUTE DISTRESS NOTED. PATIENT ON RA. 98% O2. SON AT BEDSIDE. ALL SAFETY MEASURE IN PLACE. CALL LIGHT WITHIN REACH. WILL CONTINUE TO MONITOR
--- NOTE | 2021-03-30 13:10 | NUR ---
PATIENT AWAKE AND ALERT. NO ACUTE DISTRESS NOTED. PATIENT ON RA. 96% O2. PT. ABLE TO WALK FROM BED TO BATHROOM USING CANE WITH SUPPORT. AT BEDSIDE. ALL SAFETY MEASURE IN PLACE. CALL LIGHT WITHIN REACH. WILL CONTINUE TO MONITOR
--- NOTE | 2021-03-30 14:25 | NUR ---
PATIENT AWAKE AND ALERT. NO ACUTE DISTRESS NOTED. PATIENT ON RA. 97% O2. PT. LIJ LINE REMOVED. CATHETER INTACT.WILL MONITOR FOR FEW MINUTES BEFORE DISCHARGE. AT BEDSIDE. ALL SAFETY MEASURE IN PLACE. CALL LIGHT WITHIN REACH. WILL CONTINUE TO MONITOR
--- NOTE | 2021-03-30 15:05 | NUR ---
PATIENT AWAKE AND ALERT. NO ACUTE DISTRESS NOTED. PATIENT ON RA. 97% O2.DISCHARGE INFORMATION GIVEN TO PT. PT SIGNED ALL THE DOCUMENTS AND VERBALIZED UNDERSTANDING.WRIST BAND REMOVED. PT. TOOK ALL PERSONAL BELONGINGS. PT WHEELED VIA WHEELCHAIR TO FRONT LOBBY.
== END 2021-03-30 15:05 | disposition home or self-care (01) | DRG 871 ==
LOC: MED 17:21 → MMU 22:01 → MIC 03-25 01:23 → MTU 03-29 05:15
PROVIDERS: ADMIT Hospitalist; ATTEND Hospitalist
PROC: 0BH17EZ Insertion of Endotracheal Airway into Trachea, Via Natural or Artificial Opening (ICD-10-PCS; principal; 2021-03-24)
PROC: 5A1945Z Respiratory Ventilation, 24-96 Consecutive Hours (ICD-10-PCS; 2021-03-24)
PROC: 02HV33Z Insertion of Infusion Device into Superior Vena Cava, Percutaneous Approach (ICD-10-PCS; 2021-03-24)
PROC: B548ZZA Ultrasonography of Superior Vena Cava, Guidance (ICD-10-PCS; 2021-03-24)
DX: A41.9 Sepsis, unspecified organism (principal); J96.01 Acute respiratory failure with hypoxia; N17.0 Acute kidney failure with tubular necrosis; J69.0 Pneumonitis due to inhalation of food and vomit; R65.21 Severe sepsis with septic shock; C79.31 Secondary malignant neoplasm of brain; C79.51 Secondary malignant neoplasm of bone; C34.90 Malignant neoplasm of unspecified part of unspecified bronchus or lung; R91.1 Solitary pulmonary nodule; G40.909 Epilepsy, unspecified, not intractable, without status epilepticus; D64.9 Anemia, unspecified; N62 Hypertrophy of breast; Z20.822 Contact with and (suspected) exposure to COVID-19; K40.20 Bilateral inguinal hernia, without obstruction or gangrene, not specified as recurrent; I10 Essential (primary) hypertension; R00.1 Bradycardia, unspecified; T38.0X6A Underdosing of glucocorticoids and synthetic analogues, initial encounter; T42.6X6A Underdosing of other antiepileptic and sedative-hypnotic drugs, initial encounter; Y92.89 Other specified places as the place of occurrence of the external cause; Z92.21 Personal history of antineoplastic chemotherapy
CPT/HCPCS: 31500; 36415; 36556; 36600; 51702; 70450; 71045; 71260; 72125; 74018; 80048; 80053; 80305; 81001; 82140; 82550; 82803; 83036; 83605; 83735; 84100; 84443; 84484; 85025; 85651; 86140; 87040; 87070; 87081; 87086; 87205; 92610; 93005; 94003; 96365; 96375; 99291; C9113; G0480; G0482; J0360; J1100; J1644; J1953; J1956; J2001; J2060; J2250; J2270; J2543; J2704; J3370; J3480; J3490; J7030; J7060; Q0092; Q9967